=== PATIENT | male | born 1980 | race Caucasian/White ===

== ENCOUNTER 2017-03-16 18:08 | Emergency (ER) | payer OTHER ==
[2017-03-16 18:24] VITALS: BP 115/62
[2017-03-16] MEDS ORDERED: DIPH/PERTUSS(ACELL)/TETANUS VAC/PF 0.5 ML SYR (>=10YO) IM ONE (20:06)
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
[2017-03-16] MEDS ORDERED: CEPHALEXIN 500 MG CAPSULE PO ONE (20:45)
--- NOTE | 2017-03-16 21:04 | RADIOLOGY REPORT (SQ) ---
EXAM DESCRIPTION: ANKLE RIGHT COMPLETE COMPLETED DATE/TIME: 03/16/2017 8:37 pm REASON FOR STUDY: stingray injury, right lat malleolus COMPARISON: None NUMBER OF VIEWS: Three views. TECHNIQUE: AP, lateral, and oblique radiographic images acquired of the right ankle. LIMITATIONS: None. FINDINGS: MINERALIZATION: Normal. BONES: No acute fracture or dislocation. No worrisome bone lesions. JOINTS: No effusions. SOFT TISSUES: No soft tissue swelling. No foreign body. OTHER: No other significant finding. IMPRESSION: NEGATIVE STUDY OF THE RIGHT ANKLE. NO RADIOGRAPHIC EVIDENCE OF ACUTE INJURY. TECHNICAL DOCUMENTATION: JOB ID: [id number] [employer]- All Rights Reserved
== END 2017-03-16 21:09 | disposition home or self-care (01) ==
LOC: ER 18:08
DX: T63.511A Toxic effect of contact with stingray, accidental (unintentional), initial encounter (principal)
CPT/HCPCS: 90471; 90715; 99283